=== PATIENT | female | born 1995 | race African-American/Black ===

== ENCOUNTER 2017-04-29 12:42 | Emergency (ER) | payer OTHER ==
[2017-04-29 12:54] VITALS: BP 142/63; PULSE 63; TEMP 98; BMI 40.3
--- NOTE | 2017-04-29 14:05 | PDOC ---
History of Present Illness - General Chief Complaint: Pain Stated Complaint: PAIN (LT FOOT) Time Seen by Provider: 04/29/17 13:45 History Source: Patient Exam Limitations: No Limitations - History of Present Illness Initial Comments: 04/29/17 14:00 21 yr female with c/o left small toe fungus for 3 weeks. pt has no medical history or allergies. Past History - Past Medical History Allergies/Adverse Reactions: Allergies Allergy/AdvReac Type Severity Reaction Status Date / Time No Known Allergies Allergy Verified 04/29/17 12:54 Home Medications: Ambulatory Orders NK [No Known Home Medication] 04/29/17 Asthma: No Cancer: No Cardiac Disorders: No Diabetes: No HTN: No Seizures: No Thyroid Disease: No - Psycho/Social/Smoking Cessation Hx Suicidal Ideation: No Smoking History: Never smoked Have you smoked in the past 12 months: No Information on smoking cessation initiated: No Hx Alcohol Use: No Drug/Substance Use Hx: No Hx Substance Use Treatment: No Review of Systems - Review of Systems Able to Perform ROS?: Yes Is the patient limited Citizen Of [place] proficient: No Constitutional: No: Symptoms Reported HEENTM: No: Symptoms Reported Respiratory: No: Symptoms reported Cardiac (ROS): No: Symptoms Reported ABD/GI: No: Symptoms Reported : No: Symptoms Reported Integumentary: Yes: See HPI *Physical Exam - Vital Signs Last Vital Signs Temp Pulse Resp BP Pulse Ox 98 F 63 18 142/63 99 04/29/17 12:52 04/29/17 12:52 04/29/17 12:52 04/29/17 12:52 04/29/17 12:52 - Physical Exam General Appearance: Yes: Nourished, Appropriately Dressed HEENT: positive: EOMI, ENEDELIA, Normal ENT Inspection Neck: positive: Supple Respiratory/Chest: positive: Lungs Clear, Normal Breath Sounds Cardiovascular: positive: Regular Rhythm, Regular Rate Musculoskeletal: positive: Normal Inspection Extremity: positive: Normal Capillary Refill, Normal Inspection, Normal Range of Motion, Other (left fifth toe with toenail fungus, discolored dark nail, moist white skin in between the 4th and 5th toe) Integumentary: positive: Normal Color, Dry, Warm Neurologic: positive: Fully Oriented, Alert, Normal Mood/Affect, Normal Response , Motor Strength 5/5 Medical Decision Making - Medical Decision Making 04/29/17 14:04 cc: toenail fungus, atheltes foot in bewtween 4th and 5th toes left side no drainage, no redness will refer to podiatry recommend lamisil cream as directed mom agrees with care all questions asked and answered. *DC/Admit/Observation/Transfer Diagnosis at time of Disposition: Tinea pedis of left foot - Discharge Dispostion Disposition: HOME Condition at time of disposition: Good - Referrals Referrals: Armando Angel MD [Staff Physician] - - Patient Instructions Additional Instructions: please follow up with the boat puller for further care of the athlete's foot you can purchase over the counter Lamisil (athlete's foot cream) cream in the foot care isle at any drugstore apply as directed keep foot clean and dry
== END 2017-04-29 14:06 | disposition home or self-care (01) ==
LOC: JERFT 12:42
DX: B35.3 Tinea pedis (principal)
CPT/HCPCS: 99281-25

== ENCOUNTER 2018-07-25 09:34 | Emergency (ER) | payer OTHER ==
[2018-07-25 10:18] VITALS: BP 124/56; PULSE 66; TEMP 99.1; BMI 38.7
[2018-07-25] MEDS ORDERED: IBUPROFEN 600 MG TABLET (FP) PO ONE (10:29)
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
== END 2018-07-25 11:49 | disposition home or self-care (01) ==
LOC: JERFT 09:34
DX: S10.83XA Contusion of other specified part of neck, initial encounter (principal); Y04.2XXA Assault by strike against or bumped into by another person, initial encounter; Y93.89 Activity, other specified; Y92.032 Bedroom in apartment as the place of occurrence of the external cause; Y99.8 Other external cause status; Y07.59 Other non-family member, perpetrator of maltreatment and neglect
CPT/HCPCS: 73030-TC-LT-FY; 99281-25

== ENCOUNTER 2019-03-13 01:10 | Emergency (ER) | payer OTHER ==
[2019-03-13 01:41] VITALS: TEMP 98; BMI 40.3
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
[2019-03-13 02:25] LABS: URINE APPEARANCE CLEAR; URINE BILIRUBIN NEGATIVE (NEGATIVE); URINE COLOR YELLOW; URINE GLUCOSE (UA) NEGATIVE (NEGATIVE); URINE KETONE NEGATIVE (NEGATIVE); URINE LEUK ESTERASE NEGATIVE (NEGATIVE); URINE NITRITE NEGATIVE (NEGATIVE); URINE PROTEIN NEGATIVE (NEGATIVE)
[2019-03-13] MEDS ORDERED: KETOROLAC TROMETHAMINE 30 MG/1 ML VIAL IM ONE (02:39)
[2019-03-13] MEDS ORDERED: KETOROLAC TROMETHAMINE 30 MG/1 ML VIAL ONE (02:58)
[2019-03-13 04:04] VITALS: BP 112/58; PULSE 62
--- NOTE | 2019-03-13 04:15 | PDOC ---
Attending Attestation - Resident Resident Name: RebekaRehan - ED Attending Attestation I have performed the following: I have examined & evaluated the patient, The case was reviewed & discussed with the resident, I agree w/resident's findings & plan, Exceptions are as noted - HPI HPI: 03/13/19 04:14 23F no pmh here with sob and back px after drinking alcohol with dissolved ecstasy. No other complaints. - Physicial Exam PE: 03/13/19 04:15 Agree with exam as documented by resident - Medical Decision Making 03/13/19 04:17 SOB and back px, PERC neg CXR, UA no acute pathology symptomatic improvement DC home return precautions
== END 2019-03-13 04:05 | disposition home or self-care (01) ==
LOC: JER 01:10
PROC: 3E0233Z Introduction of Anti-inflammatory into Muscle, Percutaneous Approach (ICD-10-PCS; principal; 2019-03-13)
DX: R06.03 Acute respiratory distress (principal)
CPT/HCPCS: 71046-TC-FY; 81003; 84703; 87086; 96372; 99283-25

== ENCOUNTER 2020-06-04 17:13 | Emergency (ER) | payer OTHER ==
[2020-06-04 17:25] VITALS: BP 110/70; PULSE 86; TEMP 98.6; BMI 39.6
--- OUTSIDE RECORDS SUMMARY | 2020-06-04 17:28 | XMS ---
:1995 Author Organization [facility] Support Name Relationship Address Phone TERESA Unavailable [address] [place] [address] STEWLE Unavailable [address] [phone] [place] [address] SRIDHAR TOLBERT MOTHER [address] [employer] [facility] [place] [address] Re-disclosure Warning The records that you are about to access may contain information from federally- assisted alcohol or drug abuse programs. If such information is present, then the following federally mandated warning applies: This information has been disclosed to you from records protected by federal confidentiality rules (42 CFR part 2). The federal rules prohibit you from making any further disclosure of this information unless further disclosure is expressly permitted by the written consent of the person to whom it pertains or as otherwise permitted by 42 CFR part 2. A general authorization for the release of medical or other information is NOT sufficient for this purpose. The Federal rules restrict any use of the information to criminally investigate or prosecute any alcohol or drug abuse patient.The records that you are about to access may contain highly sensitive health information, the redisclosure of which is protected by Article 27-F of the [facility] Public Health law. If you continue you may haveaccess to information: Regarding HIV / AIDS; Provided by facilities licensed or operated by the [facility] Office of Mental Health; or Provided by the [facility] Office for People With Developmental Disabilities. If such information is present, then the following [facility] mandated warning applies: This information has been disclosed to you from confidential records which are protected by state law. State law prohibits you from making any further disclosure of this information without the specific written consent of the person to whom it pertains, or as otherwise permitted by law. Any unauthorized further disclosure in violation of state law may result in a fine or fdc sentence or both. A general authorization for the release of medical or other information is NOT sufficient authorization for further disclosure. Insurance Providers Payer name Policy type Policy ID Covered Covered green party's Policy P jami / Coverage green party ID relationship to [employer] type sanchez [employer] MEDICA[place] [id number] SP [id number] HMO Results ID Date Data Source [id number] 02/25/2020 12:00:00 AM EDT [facility] Name Value Range Interpretation Code Description Data Lina rce(s) Supporting Document(s ) 2019-nCoV [facility] RNA XXX GERALD+probe- Imp This lab was ordered by [facility] and reported by [employer] Procedure
--- NOTE | 2020-06-04 17:45 | PDOC ---
History of Present Illness - General Chief Complaint: Hematuria Stated Complaint: ABD PAIN/ Time Seen by Provider: 06/04/20 17:26 History Source: Patient Exam Limitations: No Limitations - History of Present Illness Initial Comments: 06/04/20 17:42 Patient is a 24-year-old female who presents to the ED with complaint of noticing blood in her urine today and urinating frequently. She states that she believes she has a urinary tract infection. She has recently had a UTI and states she was treated 1 month ago. She also saw her STEAM AND POWER SUPERVISOR 2 weeks ago and was tested and treated for gonorrhea. The patient states that she is not having any STEAM AND POWER SUPERVISOR complaints at this time. She denies any abdominal pain, fevers, chills, flank pain. She has not taken anything for her symptoms. She denies past medical history or allergies to medications. Past History - Medical History Allergies/Adverse Reactions: Allergies Allergy/AdvReac Type Severity Reaction Status Date / Time No Known Drug Allergies Allergy Verified 06/04/20 17:21 dust mites Allergy Unknown Uncoded 06/04/20 17:21 Home Medications: Ambulatory Orders Ibuprofen 400 mg PO Q6H PRN #30 tablet 07/25/18 Cephalexin [Keflex] 500 mg PO BID 7 Days #14 capsule 06/04/20 Asthma: Yes Cancer: No Cardiac Disorders: No COPD: No Diabetes: No HTN: No Seizures: No Thyroid Disease: No - Reproductive History Is Patient Now?: No - Immunization History Immunization Up to Date: Yes - Psycho-Social/Smoking History Smoking History: Never smoked Have you smoked in the past 12 months: No - Substance Abuse Hx (Audit-C & DAST Scrn) How often the patient has a drink containing alcohol: Never Score: In Men: 4 or > Positive; In Women: 3 or > Positive: 0 Screen Result (Pos requires Nsg. Audit-10AR): Negative Review of Systems - Review of Systems Comments:: 06/04/20 17:43 - Review of Systems Able to Perform ROS?: Yes Constitutional: No: Fever, Chills, Loss of Appetite, Night Sweats, Weakness HEENTM: No: Eye Pain, Vision changes, Ear Pain, Throat Pain, Throat Swelling, Mouth Pain, Difficulty Swallowing Respiratory: No: Cough, Shortness of Breath, Wheezing, Sputum Production Cardiac (ROS): No: Chest Pain, Chest Tightness, Palpitations, Irregular Heart Beat, Edema ABD/GI: No: Nausea, Vomiting, Abdominal Pain, Diarrhea : No Dysuria, No Urgency, No Vaginal Discharge/Pain; positive: Hematuria, urinary frequency Musculoskeletal: No: Muscle Pain, Back Pain, Joint Pain, Muscle Weakness, Neck Pain Integumentary: No: Lesions, Rash Neurological: No: Headache, Numbness, Tingling, Weakness, Speech Difficulties *Physical Exam - Vital Signs Last Vital Signs Temp Pulse Resp BP Pulse Ox 98.6 F 86 18 110/70 100 06/04/20 17:21 06/04/20 17:21 06/04/20 17:21 06/04/20 17:21 06/04/20 17:21 - Physical Exam 06/04/20 17:44 - Physical Exam General Appearance: Nourished, Appropriately Dressed, No Distress HEENT: EOMI, Normal Voice, Hearing Grossly Normal Neck: Supple, No Lymphadenopathy (R), No Lymphadenopathy (L), No Rigidity, No Decreased range of motion Respiratory/Chest: Lungs Clear, Normal Breath Sounds. No Respiratory Distress, No Accessory Muscle Use Cardiovascular: Regular Rhythm, Regular Rate, S1, S2 Gastrointestinal/Abdominal: Normal Bowel Sounds, Soft. Non-tender, No Guarding, No Rebound, No Rigidity; no reproducible abdominal tenderness appreciated. No CVA tenderness bilaterally STEAM AND POWER SUPERVISOR: Deferred as patient request as she was evaluated, tested and treated by her STEAM AND POWER SUPERVISOR 2 weeks ago Musculoskeletal: Normal Inspection. No Decreased Range of Motion Extremity: Normal Capillary Refill, Normal Inspection Integumentary: Normal Color, Dry. No Rash Neurologic: seamstress fitter II-XII NML intact, Fully Oriented, Alert, Normal Mood/Affect, Normal Response ED Treatment Course - ADDITIONAL ORDERS Additional order review: 06/04/20 18:20 Laboratory Tests 06/04/20 17:35 Urine Color Yellow Urine Appearance Cloudy Urine pH 5.0 Ur Specific [place] 1.021 Urine Protein 1+ H Urine Glucose (UA) Negative Urine Ketones Trace H Urine Blood 3+ H Urine Nitrite Negative Urine Bilirubin Negative Urine Urobilinogen 0.2 Ur Leukocyte Esterase 2+ H Urine WBC (Auto) 2896 Urine RBC (Auto) 608 Urine Casts (Auto) 0 U Epithel Cells (Auto) 5 Urine Bacteria (Auto) 682 Urine HCG, Qual Negative Medical Decision Making - Medical Decision Making 06/04/20 17:45 Assessment: Patient is a 24-year-old female with hematuria and urinary frequency. Plan: -UA, urine culture and urine test ordered -Will reassess 06/04/20 18:20 The patient has been made aware that she has urine that is significant for infection. 1 dose of Keflex has been given to her in the ED today. We will send the remaining prescription to the pharmacy. She was follow-up with her FAMILY LAW ATTORNEY or primary doctor within 1 to 2 days for repeat evaluation. She understands and agrees with this treatment and plan and she is stable for discharge. Discharge - Discharge Information Problems reviewed: Yes Clinical Impression/Diagnosis: UTI (urinary tract infection) Qualifiers: Urinary tract infection type: acute cystitis Hematuria presence: with hematuria Qualified Code(s): N30.01 - Acute cystitis with hematuria Condition: Stable Disposition: HOME - Additional Discharge Information Prescriptions: Cephalexin [Keflex] 500 mg PO BID 7 Days #14 capsule - Follow up/Referral Referrals: ON STAFF,NOT [Primary Care Provider] - - Patient Discharge Instructions Patient Printed Discharge Instructions: DI for Urinary Tract Infection (UTI) Additional Instructions: Get plenty of rest and drink plenty of fluids. Take the antibiotics as prescribed and complete the entire course. You were given your night dose of the antibiotic today so start tomorrow morning. Be sure to follow-up with your primary doctor or your FAMILY LAW ATTORNEY within 1 to 2 days for repeat evaluation. Return to the emergency department for high fevers, shaking chills, profuse vomiting, severe abdominal pain or any other worsening symptoms. - Post Discharge Activity Work/Back to School Note: Back to Work
[2020-06-04 18:04] LABS: EPI CELLS 5 /uL (0-25.1); HYALINE CASTS 0 /uL (0-3.1); URINE APPEARANCE CLOUDY; URINE BACTERIA 682 /uL (0-1359); URINE BILIRUBIN NEGATIVE (NEGATIVE); URINE COLOR YELLOW; URINE GLUCOSE (UA) NEGATIVE (NEGATIVE); URINE KETONE TRACE (NEGATIVE); URINE LEUK ESTERASE 2+ (NEGATIVE); URINE NITRITE NEGATIVE (NEGATIVE); URINE PROTEIN 1+ (NEGATIVE); URINE RBC 608 /uL (0-23.9); URINE UROBILINOGEN 0.2 mg/dL (0.2-1.0); URINE WBC 2896 /uL (0-25.8)
[2020-06-04 18:15] LABS: HCG,QUALITATIVE URINE Negative
[2020-06-04] MEDS ORDERED: CEPHALEXIN MONOHYDRATE 500 MG CAPSULE (UD) PO ONE (18:19)
[2020-06-04] MEDS ORDERED: CEPHALEXIN MONOHYDRATE 500 MG CAPSULE (UD) ONE (18:20)
== END 2020-06-04 18:44 | disposition home or self-care (01) ==
LOC: JER 17:13
DX: N30.01 Acute cystitis with hematuria (principal)
CPT/HCPCS: 81003; 84703; 87086; 87186; 99284-25

== ENCOUNTER 2023-02-26 23:25 | Emergency (ER) | payer OTHER ==
[2023-02-26 23:32] VITALS: BP 129/84; PULSE 75; RESP 24; TEMP 98.2; BMI 39.9
[2023-02-26] MEDS ORDERED: MAGNESIUM SULF 50% (8.12 MEQ/2 ML-1 GM VIAL) IVPB ONE (23:38)
[2023-02-26] MEDS ORDERED: methylPREDNISolone NA SUCC 125 MG/2 ML VIAL IVPUSH ONE (23:38)
[2023-02-26] MEDS ORDERED: MAGNESIUM SULFATE IN WATER 2 GM/50 ML IVPB IVPB ONE (23:38)
[2023-02-26] MEDS ORDERED: methylPREDNISolone NA SUCC 125 MG/2 ML VIAL ONE (23:38)
[2023-02-27 00:38] LABS: BASO % 0.3 % (0-2.0); EOS % 6.8 % (0-4.5); HEMATOCRIT 46.8 % (32.4-45.2); HEMOGLOBIN 15.7 GM/dL (10.7-15.3); LYMPH % 12.5 % (8-40); MCH 30.7 pg (25.7-33.7); MCHC 33.5 g/dl (32.0-36.0); MEAN CELL VOLUME 91.5 fl (80-96); MEAN PLT VOLUME 8.3 fl (7.5-11.1); MONO % 5.6 % (3.8-10.2); NEUT % 74.8 % (42.8-82.8); PLATELET COUNT 353 10^3/uL (134-434); RBC 5.11 M/mm3 (3.60-5.2); RDW 13.3 % (11.6-15.6); WHITE BLOOD COUNT 16.3 K/mm3 (4.0-10.0)
[2023-02-27] MEDS ORDERED: SODIUM CHLORIDE 0.9% 500 ML INFUS.BAG IV ONE (00:49)
[2023-02-27] MEDS: ALBUTEROL SO4 2.5/IPRATROPIUM 0.5 INH SOL 3 ML VIAL.NEB. NEB SCH ×3 (00:50→00:51)
[2023-02-27 01:09] LABS: POTASSIUM 5.8 mmol/L (3.5-5.1)
[2023-02-27 01:11] LABS: BLOOD UREA NITROGEN 11.5 mg/dL (7-18)
[2023-02-27 01:12] LABS: ALBUMIN 4.2 g/dl (3.4-5.0)
[2023-02-27 01:13] LABS: MAGNESIUM 2.3 mg/dL (1.8-2.4)
[2023-02-27 01:16] LABS: BILIRUBIN,TOTAL 0.8 mg/dL (0.2-1); CREATININE 1.2 mg/dL (0.55-1.3); TOT PROT 8.8 g/dl (6.4-8.2)
== END 2023-02-27 01:42 | disposition home or self-care (01) ==
LOC: JER 23:25
PROC: 3E033GC Introduction of Other Therapeutic Substance into Peripheral Vein, Percutaneous Approach (ICD-10-PCS; principal; 2023-02-27)
PROC: 3E033GC Introduction of Other Therapeutic Substance into Peripheral Vein, Percutaneous Approach (ICD-10-PCS; 2023-02-27)
PROC: 3E0F7GC Introduction of Other Therapeutic Substance into Respiratory Tract, Via Natural or Artificial Opening (ICD-10-PCS; 2023-02-27)
DX: R06.02 Shortness of breath (principal); R05.9 Cough, unspecified; J45.901 Unspecified asthma with (acute) exacerbation
CPT/HCPCS: 36415; 71045-TC-FY; 80053; 83735; 85025; 93005; 93010; 99285-25